=== PATIENT | male | born 1985 | race Caucasian/White ===

== ENCOUNTER 2016-10-29 23:31 | Emergency (ER) | payer SELFPAY | END 2016-10-30 01:10 | disposition left against medical advice (07) | LOC: FER 23:31 | DX: R06.89 Other abnormalities of breathing (principal); R11.10 Vomiting, unspecified; R09.81 Nasal congestion; Z53.8 Procedure and treatment not carried out for other reasons ==

== ENCOUNTER 2021-05-22 12:54 | Emergency (ER) | payer OTHER | END 2021-05-22 17:02 | disposition home or self-care (01) | LOC: FER 12:54 | DX: B34.9 Viral infection, unspecified (principal); M79.652 Pain in left thigh; Z20.822 Contact with and (suspected) exposure to COVID-19 | CPT/HCPCS: 99283; U0002 ==